=== PATIENT | male | born 1940 | race Caucasian/White ===

== ENCOUNTER 2018-03-05 18:48 | Inpatient (IN) | payer BC, MEDICARE ==
[~2018-03-05] VITALS: Ht 157.5 cm; Wt 76.8 kg
[~2018-03-05 18:48] MED LIST: AMIO200T57 PO; ATOR20TA PO; CARV-49 PO; CHOL10008 PO; EXEN2VIA SUBCUT; FOLI1TAB16 PO; FURO40TA4 PO; LISI2.5T2 PO; MULT-342 PO; NITR0.4T48 SL; OMEG-8 PO; PANT-47 PO; SPIR25TA PO; TEMA15CA5 PO
[2018-03-05] MEDS ORDERED: furosemide 40mg/4ml inj IV ONE (19:05)
[2018-03-05 19:24] LABS: BASOPHILS % (AUTO) 0 % (0-1); EOSINOPHILS % (AUTO) 0.5 % (0-6); HEMATOCRIT 32.7 % (42.0-52.0); HEMOGLOBIN 10.5 g/dl (14.0-17.9); LYMPHOCYTES # (AUTO) 0.3 X10'3 (1.1-4.8); LYMPHOCYTES % (AUTO) 3.4 % (21-51); MEAN CORPUSCULAR HEMOGLOBIN 26.5 PG (27.0-31.0); MEAN CORPUSCULAR HGB CONC 32.2 % (33.0-36.5); MEAN CORPUSCULAR VOLUME 82.1 FL (78-98); MEAN PLATELET VOLUME 9.4 FL (7.4-10.4); MONOCYTES % (AUTO) 0.5 % (2-12); NEUTROPHILS # (AUTO) 7.8 X10'3 (1.8-7.7); NEUTROPHILS % (AUTO) 95.6 % (42-75); PLATELET COUNT 189 X10'3 (140-440); RED BLOOD COUNT 3.98 X10'6 (4.70-6.10); RED CELL DISTRIBUTION WIDTH 15.9 % (11.5-14.5); WHITE BLOOD COUNT 8.1 X10'3 (4.5-11.0)
[2018-03-05 19:33] LABS: PARTIAL THROMBOPLASTIN TIME 22 SECONDS (22-32); PROTHROMBIN TIME 10.7 SECONDS (9.0-12.0)
[2018-03-05 19:39] LABS: ALANINE AMINOTRANSFERASE 33 U/L (12-78); ALBUMIN 3.6 G/DL (3.4-5.0); ALBUMIN/GLOBULIN RATIO 0.9 (1.1-1.5); ALKALINE PHOSPHATASE 105 IU/L (46-116); ANION GAP 12 (8-16); ASPARTATE AMINO TRANSFERASE 25 U/L (10-37); BILIRUBIN,TOTAL 0.8 MG/DL (0.1-1.0); BLOOD UREA NITROGEN 29 MG/DL (7-18); BUN/CREATININE RATIO 14.9 (5.4-32.0); CHLORIDE 97 MMOL/L (99-107); CREATININE 1.94 MG/DL (0.60-1.10); GLUCOSE 271 MG/DL (70-104); POTASSIUM 4.2 MMOL/L (3.5-5.1); SODIUM 136 MMOL/L (135-145); TOTAL CARBON DIOXIDE 26.9 MMOL/L (24-32); TOTAL PROTEIN 7.5 G/DL (6.4-8.2); eGFR 34 ML/MIN
[2018-03-05] MEDS ORDERED: LORazepam 2 mg/ml vial IV ONE (19:40)
[2018-03-05] MEDS ORDERED: AMIO200T57 PO (20:18)
[2018-03-05] MEDS ORDERED: TEMA15CA5 PO (20:34)
[2018-03-05] MEDS ORDERED: FURO40TA4 PO (20:34)
[2018-03-05] MEDS ORDERED: LEVO50TA PO (20:34)
[2018-03-05] MEDS ORDERED: SACU1TAB PO (20:34)
[2018-03-05] MEDS ORDERED: furosemide 10 MG/1 ML 10ml inj IV ONE (20:35)
[2018-03-05 20:58] LABS: CLARITY,URINE Clear (Clear); COLOR,URINE Yellow (Yellow); GLUCOSE, URINE Negative (Neg); KETONES,URINE Negative (Neg); LEUKOCYTE ESTERASE ,URINE Negative (Neg); NITRITES, URINE Negative (Neg); OCCULT BLOOD,URINE Negative (Neg); PROTEIN,URINE Negative (Neg); UROBILINOGEN,URINE 0.2 E.U/dL (0.2-1.0)
[2018-03-05 20:59] LABS: UA COLLECTION TYPE VOIDED
[2018-03-05] MEDS ORDERED: normal saline 1000ml 1,000 ML IV SCH (22:18)
[2018-03-05] MEDS ORDERED: magnesium hydroxide 30ml (MOM) UD suspension PO PRN (22:20)
[2018-03-05] MEDS ORDERED: acetaminophen 325mg tablet PO PRN ×2 (22:20)
[2018-03-05] MEDS ORDERED: nitroGLYCERIN 0.4mg SUBLingual tab SL PRN ×2 (22:25)
[2018-03-06] VITALS (7 sets, daily range): BP systolic 110–133; BP diastolic 48–67
[2018-03-06] MEDS: furosemide 40mg/4ml inj IV SCH ×3 (01:44→15:28)
[2018-03-06 01:47] LABS: ALANINE AMINOTRANSFERASE 35 U/L (12-78); ALBUMIN 3.7 G/DL (3.4-5.0); ALBUMIN/GLOBULIN RATIO 0.9 (1.1-1.5); ALKALINE PHOSPHATASE 101 IU/L (46-116); ANION GAP 14 (8-16); ASPARTATE AMINO TRANSFERASE 27 U/L (10-37); BILIRUBIN,TOTAL 0.8 MG/DL (0.1-1.0); BLOOD UREA NITROGEN 28 MG/DL (7-18); CALCIUM 9.2 MG/DL (8.5-10.1); CHLORIDE 99 MMOL/L (99-107); CREATININE 1.75 MG/DL (0.60-1.10); GLUCOSE 147 MG/DL (70-104); SODIUM 140 MMOL/L (135-145); TOTAL CARBON DIOXIDE 27.2 MMOL/L (24-32); TOTAL PROTEIN 7.7 G/DL (6.4-8.2); eGFR 38 ML/MIN
[2018-03-06 01:50] LABS: MAGNESIUM 1.9 MG/DL (1.5-2.4); PHOSPHORUS 3.9 MG/DL (2.3-4.5)
[2018-03-06] MEDS ORDERED: heparin 10,000 units/1 ML INJ IV ONE (02:15)
[2018-03-06] MEDS ORDERED: heparin 10,000 units/1 ML INJ IV PRN (02:15)
[2018-03-06 02:40] LABS: BASOPHILS % (AUTO) 0.2 % (0-1); EOSINOPHILS % (AUTO) 0 % (0-6); HEMATOCRIT 33.3 % (42.0-52.0); LYMPHOCYTES # (AUTO) 0.3 X10'3 (1.1-4.8); MEAN CORPUSCULAR HEMOGLOBIN 27.1 PG (27.0-31.0); MEAN CORPUSCULAR VOLUME 82.1 FL (78-98); MEAN PLATELET VOLUME 10.7 FL (7.4-10.4); MONOCYTES % (AUTO) 0.6 % (2-12); NEUTROPHILS # (AUTO) 6.1 X10'3 (1.8-7.7); NEUTROPHILS % (AUTO) 95.2 % (42-75); PLATELET COUNT 183 X10'3 (140-440); RED BLOOD COUNT 4.05 X10'6 (4.70-6.10); RED CELL DISTRIBUTION WIDTH 14.9 % (11.5-14.5); WHITE BLOOD COUNT 6.4 X10'3 (4.5-11.0)
[2018-03-06] MEDS: levoTHYROXINE 25mcg tablet PO SCH (07:03)
[2018-03-06] MEDS ORDERED: heparin, porcine 5000 units/ml vial SQ SCH (08:00)
[2018-03-06] MEDS: folic acid 1mg tablet PO SCH (08:02)
[2018-03-06] MEDS: amiodarone 200mg tablet PO SCH (08:02)
[2018-03-06] MEDS: carvedilol 6.25mg tablet PO SCH ×2 (08:02→20:09)
[2018-03-06] MEDS: vitamin D (cholecalciferol) 1,000 unit tablet PO SCH (08:03)
[2018-03-06] MEDS: sacubitril/valsartan 24mg-26mg tablet PO SCH ×2 (08:05→20:09)
[2018-03-06] MEDS: atorvastatin 20mg tablet PO SCH (08:13)
[2018-03-06] MEDS: aspirin 81mg tab.chew PO SCH (09:19)
[2018-03-06] MEDS ORDERED: EXEN2VIA SUBCUT (12:02)
[2018-03-06] MEDS ORDERED: FURO80TA3 PO (12:03)
[2018-03-06] MEDS ORDERED: TEMA7.5C PO (12:05)
[2018-03-06] MEDS: heparin, porcine 5000 units/ml vial SQ SCH (20:10)
[2018-03-07] MEDS ORDERED: temazepam 15mg capsule PO ONE (00:10)
[2018-03-07] MEDS: furosemide 40mg/4ml inj IV SCH ×2 (00:22→07:53)
[2018-03-07 03:00] VITALS: BP 108/61
[2018-03-07 05:44] LABS: BASOPHILS % (AUTO) 0.2 % (0-1); EOSINOPHILS # (AUTO) 0.3 X10'3 (0-0.9); EOSINOPHILS % (AUTO) 2.3 % (0-6); HEMOGLOBIN 9.1 g/dl (14.0-17.9); LYMPHOCYTES # (AUTO) 0.8 X10'3 (1.1-4.8); MEAN CORPUSCULAR HEMOGLOBIN 26.7 PG (27.0-31.0); MEAN CORPUSCULAR HGB CONC 32.4 % (33.0-36.5); MEAN CORPUSCULAR VOLUME 82.2 FL (78-98); MEAN PLATELET VOLUME 10.7 FL (7.4-10.4); MONOCYTES # (AUTO) 0.6 X10'3 (0-0.9); MONOCYTES % (AUTO) 4.9 % (2-12); NEUTROPHILS # (AUTO) 10.3 X10'3 (1.8-7.7); NEUTROPHILS % (AUTO) 85.6 % (42-75); PLATELET COUNT 164 X10'3 (140-440); RED BLOOD COUNT 3.41 X10'6 (4.70-6.10); RED CELL DISTRIBUTION WIDTH 15.7 % (11.5-14.5)
[2018-03-07 06:00] VITALS: BP 107/58
[2018-03-07 06:17] LABS: ALANINE AMINOTRANSFERASE 30 U/L (12-78); ALBUMIN 3.2 G/DL (3.4-5.0); ALBUMIN/GLOBULIN RATIO 0.9 (1.1-1.5); ALKALINE PHOSPHATASE 80 IU/L (46-116); ANION GAP 9 (8-16); ASPARTATE AMINO TRANSFERASE 23 U/L (10-37); BILIRUBIN,TOTAL 0.5 MG/DL (0.1-1.0); BLOOD UREA NITROGEN 40 MG/DL (7-18); BUN/CREATININE RATIO 20.5 (5.4-32.0); CALCIUM 8.3 MG/DL (8.5-10.1); CHLORIDE 100 MMOL/L (99-107); CREATININE 1.95 MG/DL (0.60-1.10); GLUCOSE 102 MG/DL (70-104); MAGNESIUM 1.9 MG/DL (1.5-2.4); PHOSPHORUS 3.6 MG/DL (2.3-4.5); POTASSIUM 3.4 MMOL/L (3.5-5.1); SODIUM 141 MMOL/L (135-145); TOTAL CARBON DIOXIDE 32.1 MMOL/L (24-32); TOTAL PROTEIN 6.7 G/DL (6.4-8.2); eGFR 34 ML/MIN
[2018-03-07 07:37] LABS: LARGE PLATELETS FEW; PLATELET ESTIMATE NORMAL
[2018-03-07] MEDS: vitamin D (cholecalciferol) 1,000 unit tablet PO SCH (07:48)
[2018-03-07] MEDS: aspirin 81mg tab.chew PO SCH (07:49)
[2018-03-07] MEDS: sacubitril/valsartan 24mg-26mg tablet PO SCH (07:49)
[2018-03-07] MEDS: carvedilol 6.25mg tablet PO SCH (07:49)
[2018-03-07] MEDS: folic acid 1mg tablet PO SCH (07:49)
[2018-03-07] MEDS: amiodarone 200mg tablet PO SCH (07:50)
[2018-03-07] MEDS: levoTHYROXINE 25mcg tablet PO SCH (07:50)
[2018-03-07] MEDS: atorvastatin 20mg tablet PO SCH (07:51)
[2018-03-07] MEDS: heparin, porcine 5000 units/ml vial SQ SCH (07:54)
[2018-03-07] MEDS ORDERED: ALPRAZolam 0.25mg tablet PO ONE (10:15)
[2018-03-07 11:00] VITALS: BP 108/52
[2018-03-07] MEDS ORDERED: FURO80TA3 PO (12:26)
== END 2018-03-07 13:25 | disposition home or self-care (01) | DRG 280 ==
LOC: ER 18:48 → ED HOLD 22:18 → EDBEDREQ 23:24 → PCU 3S 03-06 00:35
PROVIDERS: ADMIT Emergency Medicine; ATTEND Internal Medicine
PROC: 5A09357 Assistance with Respiratory Ventilation, Less than 24 Consecutive Hours, Continuous Positive Airway Pressure (ICD-10-PCS; principal; 2018-03-05)
PROC: 5A09357 Assistance with Respiratory Ventilation, Less than 24 Consecutive Hours, Continuous Positive Airway Pressure (ICD-10-PCS; 2018-03-06)
DX: I21.4 Non-ST elevation (NSTEMI) myocardial infarction (principal); I50.23 Acute on chronic systolic (congestive) heart failure; I13.0 Hypertensive heart and chronic kidney disease with heart failure and stage 1 through stage 4 chronic kidney disease, or unspecified chronic kidney disease; I48.92 Unspecified atrial flutter; N17.9 Acute kidney failure, unspecified; E11.22 Type 2 diabetes mellitus with diabetic chronic kidney disease; E78.00 Pure hypercholesterolemia, unspecified; E78.5 Hyperlipidemia, unspecified; G47.30 Sleep apnea, unspecified; I25.10 Atherosclerotic heart disease of native coronary artery without angina pectoris; I27.20 Pulmonary hypertension, unspecified; M19.90 Unspecified osteoarthritis, unspecified site; N18.9 Chronic kidney disease, unspecified; I08.1 Rheumatic disorders of both mitral and tricuspid valves; Z85.47 Personal history of malignant neoplasm of testis; Z87.891 Personal history of nicotine dependence; Z95.1 Presence of aortocoronary bypass graft; Z95.810 Presence of automatic (implantable) cardiac defibrillator; Z79.899 Other long term (current) drug therapy; Z79.01 Long term (current) use of anticoagulants; Z79.82 Long term (current) use of aspirin
CPT/HCPCS: 36415; 71045; 80053; 81003; 83605; 83735; 83880; 84100; 84439; 84443; 84484; 85025; 85610; 85730; 87040; 87070; 93005; 93306; 94660; 94760; 96374; 96375; 96376; 99285; J1644; J1940; J2060; J7030

== ENCOUNTER 2018-07-11 06:39 | Emergency (ER) | payer BC, MEDICARE ==
[~2018-07-11] VITALS: Ht 160 cm; Wt 77.3 kg
[~2018-07-11 06:39] MED LIST changes: +AMIO200T40 PO; -AMIO200T57 PO; -FURO40TA4 PO; +FURO80TA3 PO; +LEVO50TA PO; -LISI2.5T2 PO; -MULT-342 PO; -OMEG-8 PO; -PANT-47 PO; +SACU1TAB PO; -SPIR25TA PO; -TEMA15CA5 PO; +TEMA7.5C PO
[2018-07-11 07:39] LABS: BASOPHILS % (AUTO) 0.6 % (0-1); EOSINOPHILS # (AUTO) 0.3 X10'3 (0-0.9); EOSINOPHILS % (AUTO) 5.3 % (0-6); HEMATOCRIT 36.5 % (42.0-52.0); HEMOGLOBIN 11.5 g/dl (14.0-17.9); LYMPHOCYTES # (AUTO) 0.8 X10'3 (1.1-4.8); LYMPHOCYTES % (AUTO) 15.6 % (21-51); MEAN CORPUSCULAR HEMOGLOBIN 26.8 PG (27.0-31.0); MEAN CORPUSCULAR HGB CONC 31.6 % (33.0-36.5); MEAN CORPUSCULAR VOLUME 84.7 FL (78-98); MEAN PLATELET VOLUME 9.3 FL (7.4-10.4); MONOCYTES # (AUTO) 0.4 X10'3 (0-0.9); MONOCYTES % (AUTO) 8.5 % (2-12); NEUTROPHILS # (AUTO) 3.6 X10'3 (1.8-7.7); PLATELET COUNT 180 X10'3 (140-440); RED BLOOD COUNT 4.31 X10'6 (4.70-6.10); RED CELL DISTRIBUTION WIDTH 20.9 % (11.5-14.5); WHITE BLOOD COUNT 5.2 X10'3 (4.5-11.0)
[2018-07-11 07:58] LABS: ALANINE AMINOTRANSFERASE 35 U/L (12-78); ALBUMIN 3.6 G/DL (3.4-5.0); ALKALINE PHOSPHATASE 87 IU/L (46-116); ANION GAP 8 (8-16); ASPARTATE AMINO TRANSFERASE 30 U/L (10-37); BILIRUBIN,TOTAL 0.4 MG/DL (0.1-1.0); BLOOD UREA NITROGEN 26 MG/DL (7-18); BUN/CREATININE RATIO 13.5 (5.4-32.0); CALCIUM 9.2 MG/DL (8.5-10.1); CHLORIDE 99 MMOL/L (99-107); CREATININE 1.93 MG/DL (0.60-1.10); GLUCOSE 109 MG/DL (70-104); POTASSIUM 3.8 MMOL/L (3.5-5.1); SODIUM 140 MMOL/L (135-145); TOTAL CARBON DIOXIDE 33.2 MMOL/L (24-32); TOTAL PROTEIN 7.3 G/DL (6.4-8.2); eGFR 34 ML/MIN
[2018-07-11 09:22] LABS: CLARITY,URINE CLEAR (Clear); COLOR,URINE YELLOW (Yellow); GLUCOSE, URINE NEGATIVE (Neg); KETONES,URINE NEGATIVE (Neg); LEUKOCYTE ESTERASE ,URINE NEGATIVE (Neg); NITRITES, URINE NEGATIVE (Neg); OCCULT BLOOD,URINE NEGATIVE (Neg); PROTEIN,URINE NEGATIVE (Neg); UROBILINOGEN,URINE 0.2 E.U/dL (0.2-1.0)
[2018-07-11 09:23] LABS: UA COLLECTION TYPE URINAL
[2018-07-11] MEDS ORDERED: TRAM50TA2 PO (09:29)
[2018-07-11 09:36] VITALS: BP 103/62
== END 2018-07-11 09:39 | disposition home or self-care (01) ==
LOC: ER 06:39
DX: M54.5 Low back pain (principal); I25.10 Atherosclerotic heart disease of native coronary artery without angina pectoris; E78.00 Pure hypercholesterolemia, unspecified; J44.9 Chronic obstructive pulmonary disease, unspecified; E11.9 Type 2 diabetes mellitus without complications; M19.90 Unspecified osteoarthritis, unspecified site; I11.0 Hypertensive heart disease with heart failure; I50.9 Heart failure, unspecified; Z95.1 Presence of aortocoronary bypass graft; Z79.899 Other long term (current) drug therapy
CPT/HCPCS: 36415; 74176; 80053; 81003; 85025; 99285

== ENCOUNTER 2018-10-21 08:54 | Inpatient (IN) | payer BC, MEDICARE ==
[~2018-10-21] VITALS: Ht 157.5 cm; Wt 70.4 kg
[2018-10-21] VITALS (8 sets, daily range): BP systolic 97–127; BP diastolic 42–76
[2018-10-21 10:16] LABS: BASOPHILS % (AUTO) 0.4 % (0-1); EOSINOPHILS # (AUTO) 0.3 X10'3 (0-0.9); EOSINOPHILS % (AUTO) 5.6 % (0-6); HEMOGLOBIN 11.3 g/dl (14.0-17.9); LYMPHOCYTES # (AUTO) 0.5 X10'3 (1.1-4.8); MEAN CORPUSCULAR HEMOGLOBIN 28.5 PG (27.0-31.0); MEAN CORPUSCULAR HGB CONC 33.3 g/dL (33.0-36.5); MEAN CORPUSCULAR VOLUME 85.8 FL (78-98); MEAN PLATELET VOLUME 8.7 FL (7.4-10.4); MONOCYTES # (AUTO) 0.4 X10'3 (0-0.9); MONOCYTES % (AUTO) 6.3 % (2-12); NEUTROPHILS # (AUTO) 4.7 X10'3 (1.8-7.7); NEUTROPHILS % (AUTO) 78.7 % (42-75); PLATELET COUNT 212 X10'3 (140-440); RED BLOOD COUNT 3.96 X10'6 (4.70-6.10); RED CELL DISTRIBUTION WIDTH 15.9 % (11.5-14.5); WHITE BLOOD COUNT 5.9 X10'3 (4.5-11.0)
[2018-10-21 10:22] LABS: CLARITY,URINE CLEAR (Clear); COLOR,URINE STRAW (Yellow); GLUCOSE, URINE NEGATIVE (Neg); KETONES,URINE NEGATIVE (Neg); LEUKOCYTE ESTERASE ,URINE NEGATIVE (Neg); NITRITES, URINE NEGATIVE (Neg); OCCULT BLOOD,URINE NEGATIVE (Neg); PROTEIN,URINE NEGATIVE (Neg); UROBILINOGEN,URINE 0.2 E.U/dL (0.2-1.0)
[2018-10-21 10:28] LABS: ALANINE AMINOTRANSFERASE 34 U/L (12-78); ALBUMIN 3.5 G/DL (3.4-5.0); ALBUMIN/GLOBULIN RATIO 0.9 (1.1-1.5); ALKALINE PHOSPHATASE 99 IU/L (46-116); ANION GAP 9 (8-16); ASPARTATE AMINO TRANSFERASE 31 U/L (10-37); BILIRUBIN,TOTAL 0.5 MG/DL (0.1-1.0); BLOOD UREA NITROGEN 37 MG/DL (7-18); BUN/CREATININE RATIO 24.3 (5.4-32.0); CALCIUM 8.7 MG/DL (8.5-10.1); CHLORIDE 98 MMOL/L (99-107); CREATININE 1.52 MG/DL (0.60-1.10); GLUCOSE 172 MG/DL (70-104); LIPASE 760 U/L (73-393); POTASSIUM 3.5 MMOL/L (3.5-5.1); PROTHROMBIN TIME 10.1 SECONDS (9.0-12.0); SODIUM 137 MMOL/L (135-145); TOTAL PROTEIN 7.3 G/DL (6.4-8.2); eGFR 45 ML/MIN
[2018-10-21 10:29] LABS: UA COLLECTION TYPE CLN CATCH MIDSTREAM
[2018-10-21] MEDS ORDERED: FURO-150 PO (12:03)
[2018-10-21] MEDS ORDERED: CLOP75TA15 PO (12:06)
[2018-10-21] MEDS ORDERED: ASPI-611 PO (12:06)
[2018-10-21] MEDS ORDERED: famotidine/PF 10 mg/ml inj IV ONE (12:40)
[2018-10-21] MEDS ORDERED: pantoprazole 40 MG vial IV ONE (12:40)
[2018-10-21] MEDS: pantoprazole 40MG/NS 100ML BAG 100 ML IV SCH ×4 (13:16→20:35)
[2018-10-21 13:21] LABS: OCCULT BLOOD STOOL POSITIVE (Neg)
[2018-10-21] MEDS ORDERED: magnesium 4gm in 100ml NS 100 ML IV PRN (15:20)
[2018-10-21] MEDS ORDERED: potassium Cl 20 mEq SR tablet PO PRN ×2 (15:20)
[2018-10-21] MEDS ORDERED: magnesium Cl slow-release 64mg tablet PO PRN (15:20)
[2018-10-21] MEDS ORDERED: potassium Cl 40MEQ/NS 500ml 500 ML IV PRN ×2 (15:20)
[2018-10-21] MEDS ORDERED: magnesium 2GM in 50ml NS 50 ML IV PRN (15:20)
--- NOTE | 2018-10-21 16:10 | NUR ---
spoke W/ Justine from GI stated that she would be by for a ERCP at approx 1715
[2018-10-21] MEDS ORDERED: fentaNYL/PF 50MCG/1 ML 2ML syringe ONE (16:24)
[2018-10-21] MEDS ORDERED: MIDAZolam 5mg/5ml vial ONE (16:25)
[2018-10-21] MEDS ORDERED: LIDOcaine Viscous 15ml cup ONE (16:25)
--- NOTE | 2018-10-21 18:10 | NUR ---
Patient in room PCU 3026. I have received report from ALIX Winters and had the opportunity to ask questions and will assume patient care when pt arrives to unit.
--- NOTE | 2018-10-21 18:30 | NUR ---
Patient arrived to unit via wheelchair. VSS and pt is alert and oriented.
[2018-10-21] MEDS: carvedilol 6.25mg tablet PO SCH (19:35)
[2018-10-21] MEDS: normal saline 1000ml 1,000 ML IV SCH (19:37)
[2018-10-21] MEDS: sacubitril/valsartan 24mg-26mg tablet PO SCH (20:00)
[2018-10-22] MEDS: pantoprazole 40MG/NS 100ML BAG 100 ML IV SCH ×3 (01:03→10:28)
[2018-10-22] MEDS: normal saline 1000ml 1,000 ML IV SCH ×2 (01:20→04:43)
[2018-10-22 02:00] VITALS: BP 125/50
[2018-10-22] MEDS ORDERED: acetaminophen 325mg tablet PO PRN (03:05)
[2018-10-22 05:16] LABS: BASOPHILS % (AUTO) 0.7 % (0-1); EOSINOPHILS # (AUTO) 0.3 X10'3 (0-0.9); EOSINOPHILS % (AUTO) 5.7 % (0-6); HEMATOCRIT 30.1 % (42.0-52.0); LYMPHOCYTES # (AUTO) 0.6 X10'3 (1.1-4.8); LYMPHOCYTES % (AUTO) 10.9 % (21-51); MEAN CORPUSCULAR HEMOGLOBIN 28.5 PG (27.0-31.0); MEAN CORPUSCULAR HGB CONC 33.2 g/dL (33.0-36.5); MEAN PLATELET VOLUME 8.5 FL (7.4-10.4); MONOCYTES # (AUTO) 0.6 X10'3 (0-0.9); MONOCYTES % (AUTO) 10.3 % (2-12); NEUTROPHILS # (AUTO) 4.2 X10'3 (1.8-7.7); NEUTROPHILS % (AUTO) 72.4 % (42-75); PLATELET COUNT 192 X10'3 (140-440); RED CELL DISTRIBUTION WIDTH 16.5 % (11.5-14.5); WHITE BLOOD COUNT 5.8 X10'3 (4.5-11.0)
[2018-10-22 05:26] LABS: ANION GAP 11 (8-16); BLOOD UREA NITROGEN 30 MG/DL (7-18); BUN/CREATININE RATIO 22.2 (5.4-32.0); CALCIUM 8.3 MG/DL (8.5-10.1); CHLORIDE 103 MMOL/L (99-107); CREATININE 1.35 MG/DL (0.60-1.10); GLUCOSE 78 MG/DL (70-104); POTASSIUM 3.1 MMOL/L (3.5-5.1); SODIUM 142 MMOL/L (135-145); eGFR 51 ML/MIN
[2018-10-22 05:57] LABS: HEMOGLOBIN A1C 6.7 % (4.5-6.2)
[2018-10-22 06:00] VITALS: BP 116/60
--- NOTE | 2018-10-22 06:20 | NUR ---
Problems reprioritized. Patient report given, questions answered & plan of care reviewed with ALIX Villarreal.
[2018-10-22] MEDS ORDERED: levoTHYROXINE 25mcg tablet PO SCH (07:00)
[2018-10-22] MEDS ORDERED: K and/or MAG REPLACEMENT MC SCH (08:00)
[2018-10-22] MEDS ORDERED: amiodarone 200mg tablet PO SCH (08:00)
[2018-10-22] MEDS ORDERED: folic acid 1mg tablet PO SCH (08:00)
[2018-10-22] MEDS ORDERED: furosemide 20MG tablet PO SCH (08:00)
[2018-10-22] MEDS ORDERED: atorvastatin 20mg tablet PO SCH (08:00)
[2018-10-22] MEDS: carvedilol 6.25mg tablet PO SCH (08:05)
[2018-10-22] MEDS: sacubitril/valsartan 24mg-26mg tablet PO SCH (08:05)
[2018-10-22 11:00] VITALS: BP 117/51
[2018-10-22] MEDS ORDERED: PANT-47 PO (11:59)
--- NOTE | 2018-10-22 13:29 | NUR ---
PT HAS ALL BELONGINGS AND IV REMOVED TIP IN TACT NO S/S OF COMPLICATIONS. PTS MEDS BROUGHT BEDSIDE DELIVERY FROM [facility]. PT HAS NO FURTHER QUESTIONS CHRIS IS AT BEDSIDE DRIVING PT HOME. PT WHEELED OUT IN A WHEELCHAIR AND WILL FOLLOW UP WITH JONNATHAN PACHECO
== END 2018-10-22 13:30 | disposition home or self-care (01) | DRG 378 ==
LOC: ER 08:54 → ED HOLD 15:20 → PCU 3S 18:20
PROVIDERS: ADMIT Internal Medicine; ATTEND Internal Medicine
PROC: 0DJ08ZZ Inspection of Upper Intestinal Tract, Via Natural or Artificial Opening Endoscopic (ICD-10-PCS; principal; 2018-10-21)
DX: K29.61 Other gastritis with bleeding (principal); I50.22 Chronic systolic (congestive) heart failure; I48.92 Unspecified atrial flutter; C43.9 Malignant melanoma of skin, unspecified; D50.0 Iron deficiency anemia secondary to blood loss (chronic); E03.9 Hypothyroidism, unspecified; E11.9 Type 2 diabetes mellitus without complications; E78.00 Pure hypercholesterolemia, unspecified; E78.5 Hyperlipidemia, unspecified; K44.9 Diaphragmatic hernia without obstruction or gangrene; I11.0 Hypertensive heart disease with heart failure; I25.10 Atherosclerotic heart disease of native coronary artery without angina pectoris; I48.2 Chronic atrial fibrillation; K31.9 Disease of stomach and duodenum, unspecified; N28.9 Disorder of kidney and ureter, unspecified; M19.90 Unspecified osteoarthritis, unspecified site; Z79.890 Hormone replacement therapy; Z79.899 Other long term (current) drug therapy; Z95.1 Presence of aortocoronary bypass graft; Z79.82 Long term (current) use of aspirin; Z87.891 Personal history of nicotine dependence; Z95.5 Presence of coronary angioplasty implant and graft; Z79.01 Long term (current) use of anticoagulants
CPT/HCPCS: 36415; 80048; 80053; 81003; 82272; 82948; 83036; 83690; 83735; 85025; 85610; 86885; 86900; 86901; 87070; 96365; 96375; 99152; 99285; A4620; C9113; G0378; J2250; J3010; J3490; J7030

== ENCOUNTER → 2021-05-25 | Outpatient (CLI) | payer MEDICARE ==
[~2021-05-25] MED LIST changes: -AMIO200T40 PO; +AMIO200T61 PO; +ASPI-611 PO; +FURO-150 PO; -FURO80TA3 PO; +PANT-47 PO; -TEMA7.5C PO
[2021-05-25 16:53] LABS: UA COLLECTION TYPE CLN CATCH MIDSTREAM
[2021-05-25 16:54] LABS: CLARITY,URINE CLEAR (Clear); COLOR,URINE STRAW (Yellow); GLUCOSE, URINE >=1000 mg/dl (Neg); KETONES,URINE NEGATIVE (Neg); OCCULT BLOOD,URINE NEGATIVE (Neg); PROTEIN,URINE NEGATIVE (Neg)
[2021-05-25 16:55] LABS: LEUKOCYTE ESTERASE ,URINE NEGATIVE (Neg); NITRITES, URINE NEGATIVE (Neg); UROBILINOGEN,URINE 0.2 E.U/dL (0.2-1.0)
[2021-05-25 16:56] LABS: BACTERIA,URINE NONE SEEN /HPF (Neg); HYALINE CASTS 0-3 /LPF (NEGATIVE); MUCUS STRANDS NONE SEEN /LPF (Neg); RBC,URINE NONE SEEN /HPF (0-2); SQUAMOUS EPITHELIAL CELL,UR NONE SEEN /LPF (FEW); WBC,URINE 0-4 /HPF (0-4)
== END | disposition home or self-care (01) ==
LOC: LAB 15:55
PROVIDERS: ATTEND Internal Medicine Interventional Cardiology
DX: Z01.818 Encounter for other preprocedural examination (principal); I25.810 Atherosclerosis of coronary artery bypass graft(s) without angina pectoris; I34.0 Nonrheumatic mitral (valve) insufficiency; I11.0 Hypertensive heart disease with heart failure; I50.22 Chronic systolic (congestive) heart failure; E11.9 Type 2 diabetes mellitus without complications; I25.10 Atherosclerotic heart disease of native coronary artery without angina pectoris; I48.3 Typical atrial flutter; G47.33 Obstructive sleep apnea (adult) (pediatric); E78.49 Other hyperlipidemia; Z95.810 Presence of automatic (implantable) cardiac defibrillator
CPT/HCPCS: 81001

== ENCOUNTER 2022-04-19 14:40 | Inpatient (IN) | payer MEDICARE, OTHER ==
[~2022-04-19] VITALS: Ht 160 cm; Wt 84.0 kg
[~2022-04-19 14:40] MED LIST changes: -FOLI1TAB16 PO; +FOLI1TAB27 PO
[2022-04-19 15:55] LABS: D-DIMER 2.39 MG/L FEU (0-0.50)
[2022-04-19 15:56] LABS: MEAN CORPUSCULAR HEMOGLOBIN 30.2 PG (27.0-31.0); MONOCYTES # (AUTO) 0.5 X10'3 (0-0.9); NEUTROPHILS # (AUTO) 3.9 X10'3 (1.8-7.7); WHITE BLOOD COUNT 4.9 X10'3 (4.5-11.0)
[2022-04-19 15:59] LABS: BASOPHILS % (AUTO) 0.8 % (0-1); EOSINOPHILS % (AUTO) 0.4 % (0-6); HEMATOCRIT 39.2 % (42.0-52.0); LYMPHOCYTES # (AUTO) 0.5 X10'3 (1.1-4.8); LYMPHOCYTES % (AUTO) 9.6 % (21-51); MEAN CORPUSCULAR HGB CONC 33.2 g/dL (33.0-36.5); MEAN CORPUSCULAR VOLUME 91.1 FL (78-98); MONOCYTES % (AUTO) 10.3 % (2-12); NEUTROPHILS % (AUTO) 78.9 % (42-75); PLATELET COUNT 153 X10'3 (140-440); RED BLOOD COUNT 4.31 X10'6 (4.70-6.10); RED CELL DISTRIBUTION WIDTH 15.7 % (11.5-14.5)
[2022-04-19 16:03] LABS: ALANINE AMINOTRANSFERASE 286 U/L (12-78); ALBUMIN 3.4 G/DL (3.4-5.0); ALKALINE PHOSPHATASE 87 IU/L (46-116); ANION GAP 12 (8-16); ASPARTATE AMINO TRANSFERASE 210 U/L (10-37); BILIRUBIN,TOTAL 0.3 MG/DL (0.1-1.0); BLOOD UREA NITROGEN 43 MG/DL (7-18); BUN/CREATININE RATIO 18.1 (5.4-32.0); CALCIUM 8.3 MG/DL (8.5-10.1); CHLORIDE 101 MMOL/L (99-107); CREATININE 2.37 MG/DL (0.60-1.10); GLUCOSE 189 MG/DL (70-104); POTASSIUM 3.8 MMOL/L (3.5-5.1); SODIUM 137 MMOL/L (135-145); TOTAL CARBON DIOXIDE 24.5 MMOL/L (24-32); TOTAL PROTEIN 6.8 G/DL (6.4-8.2); eGFR 26 ML/MIN
--- NOTE | 2022-04-19 16:27 | NUR ---
Pt satting 88% RA, placed on 3L NC, now 93-94%. RR 18
[2022-04-19] MEDS ORDERED: dexamethasone sod phosphate 10mg/ml inj IV STA (16:33)
[2022-04-19] MEDS ORDERED: diltiazem 5mg/ml 5ml inj. IV ONE ×2 (16:39→16:40)
[2022-04-19] MEDS ORDERED: normal saline 1000ML IV soln IVB ONE (16:40)
--- NOTE | 2022-04-19 17:13 | NUR ---
Possible HR change @ appx 1630. HR appeared to be capturing well at a paced rate of 60. PT asymptomatic. Pt seen by provider at bedside, leads readjusted.
[2022-04-19] MEDS ORDERED: BENZ-49 PO (17:22)
[2022-04-19] MEDS ORDERED: SACU1TAB4 PO (17:22)
[2022-04-19] MEDS ORDERED: SPIR25TA5 PO (17:22)
[2022-04-19] MEDS ORDERED: EMPA10TA PO (17:22)
[2022-04-19] MEDS ORDERED: ALLO100T PO (17:22)
[2022-04-19] MEDS ORDERED: FURO40TA4 PO (17:22)
[2022-04-19] MEDS ORDERED: ATOR40TA71 PO (17:22)
[2022-04-19] MEDS ORDERED: SEMA1PEN3 SQ (17:25)
[2022-04-19] MEDS ORDERED: dextrose 50%-water 50ml dispensing syringe IV PRN ×2 (17:35)
[2022-04-19] MEDS ORDERED: POTASSIUM BICARB 20meq eff tab 20 MEQ TABLET.EFF PO PRN ×2 (17:35)
[2022-04-19] MEDS ORDERED: ondansetron/PF 4mg/2ml inj IV PRN (17:35)
[2022-04-19] MEDS ORDERED: potassium CL 10mEq/100ml bag 100 ML IV PRN (17:35)
[2022-04-19] MEDS ORDERED: glucagon, human recombinant 1mg kit SUBCUT PRN (17:35)
[2022-04-19] MEDS ORDERED: ALBUTEROL INHALER 1 PUFF/90 MCG INHALation IH PRN (17:35)
[2022-04-19] MEDS ORDERED: mag hydrox/Alum hydrox/simeth 30ml oral suspension PO PRN (17:35)
[2022-04-19] MEDS ORDERED: MESSAGE TO PHARMACY PO ONE (17:35)
[2022-04-19] MEDS ORDERED: DEXTROSE 15 GM of carb/4 tabs (each vial/BOTTLE has 4 tablets) PO PRN ×2 (17:35)
[2022-04-19] MEDS ORDERED: magnesium 4gm in 100ml NS 100 ML IV PRN (17:35)
[2022-04-19] MEDS ORDERED: acetaminophen 325mg tablet PO PRN (17:35)
[2022-04-19] MEDS ORDERED: magnesium 2GM in 50ml NS 50 ML IV PRN (17:35)
[2022-04-19] MEDS: REMDESIVIR INJ 200 MG in normal saline 100ml IV soln 100 ML IV ONE ×2 (18:05→18:32)
--- NOTE | 2022-04-19 18:24 | NUR ---
assisting RN with pt care, cardizem IV was not given due to low blood pressure, remdesivir also held at this time. Pt is resting quietly on gurney, talking full sentences, no resp distress, skin p/w/d,
--- NOTE | 2022-04-19 18:33 | NUR ---
ASSUMED CARE OF PT. PT AWAKE AND ALERT. PLAN OF CARE DISCUSSED WITH PT. VERBELIZED UNDESTANDING. DENIES PAIN OR DISCOMFORT. WILL MONITOR.
[2022-04-19 19:11] LABS: HEMOGLOBIN A1C 7.2 % (4.5-6.2)
[2022-04-19] MEDS ORDERED: ALLO100T49 PO (19:12)
[2022-04-19] MEDS ORDERED: CARV12.545 PO (19:17)
[2022-04-19] MEDS ORDERED: TRAM50TA2 PO (19:17)
[2022-04-19] MEDS ORDERED: LEVO75TA7 PO (19:19)
[2022-04-19] MEDS ORDERED: DOBUTamine-DoBUTrex 500mg/D5W 250 ML IV SCH (19:50)
[2022-04-19] MEDS ORDERED: dexamethasone inj 6 MG in normal saline 50ml IV soln 50 ML IV SCH (20:00)
--- NOTE | 2022-04-19 20:00 | NUR ---
PT HYPOTENSIVE 100/43 MAP AT 58 . MD DENTON. TO REVIEW CHART AND PLACE ORDERS.
[2022-04-19 20:18] LABS: CREATINE KINASE 95 U/L (39-308); LIPASE 306 U/L (73-393)
[2022-04-19] MEDS: K and/or MAG REPLACEMENT MC SCH (20:18)
--- NOTE | 2022-04-19 20:30 | NUR ---
NEW ORDER TO START DUBUTYMINE NON TRITABLE AT 5MCG/KG/MIN. MED STARTED WILL MONITOR,
[2022-04-19] MEDS: insulin glargine (Lantus) pen - multi-dose SQ SCH (21:00)
[2022-04-19 21:10] VITALS: BP 135/53
[2022-04-19 21:16] LABS: CLARITY,URINE CLEAR (Clear); COLOR,URINE YELLOW (Yellow); GLUCOSE, URINE >=1000 mg/dl (Neg); KETONES,URINE NEGATIVE (Neg); LEUKOCYTE ESTERASE ,URINE NEGATIVE (Neg); NITRITES, URINE NEGATIVE (Neg); OCCULT BLOOD,URINE NEGATIVE (Neg); PH,URINE 5.5 (4.8-8.0); PROTEIN,URINE NEGATIVE (Neg); UA COLLECTION TYPE CLN CATCH MIDSTREAM; UROBILINOGEN,URINE 0.2 E.U/dL (0.2-1.0)
[2022-04-19] MEDS ORDERED: dexamethasone sod phosphate 4mg/ml inj. IV SCH (21:18)
[2022-04-19 21:49] LABS: BACTERIA,URINE NONE SEEN /HPF (Neg); MUCUS STRANDS NONE SEEN /LPF (Neg); RBC,URINE NONE SEEN /HPF (0-2); SQUAMOUS EPITHELIAL CELL,UR FEW /LPF (FEW); WBC,URINE 0-4 /HPF (0-4)
[2022-04-19 21:50] LABS: HYALINE CASTS 0-3 /LPF (NEGATIVE)
[2022-04-19 22:00] VITALS: BP 101/49
[2022-04-19] MEDS: docusate sod 100mg capsule PO SCH (23:22)
[2022-04-19] MEDS: enoxaparin 40mg/0.4ml syringe SQ SCH (23:23)
[2022-04-19] MEDS: CefTRIAXone/D5W-Rocephin 1gm 50 ML IV SCH (23:23)
[2022-04-20] MEDS ORDERED: guaiFENesin/codeine phos 10ml UD oral syrup PO PRN (02:20)
[2022-04-20] MEDS ORDERED: temazepam 15mg capsule PO PRN (02:20)
[2022-04-20 02:39] VITALS: BP 145/60
[2022-04-20 06:00] VITALS: BP 118/66
[2022-04-20] MEDS ORDERED: REMDESIVIR INJ 100 MG in normal saline 100ml IV soln 100 ML IV SCH (08:00)
[2022-04-20] MEDS: docusate sod 100mg capsule PO SCH ×2 (08:00→20:00)
[2022-04-20] MEDS: K and/or MAG REPLACEMENT MC SCH ×2 (08:00→20:00)
[2022-04-20 08:26] LABS: BASOPHILS % (AUTO) 0.2 % (0-1); EOSINOPHILS % (AUTO) 0 % (0-6); HEMATOCRIT 40.6 % (42.0-52.0); HEMOGLOBIN 13.5 g/dl (14.0-17.9); LYMPHOCYTES # (AUTO) 0.4 X10'3 (1.1-4.8); LYMPHOCYTES % (AUTO) 6.6 % (21-51); MEAN CORPUSCULAR HEMOGLOBIN 30.5 PG (27.0-31.0); MEAN CORPUSCULAR HGB CONC 33.2 g/dL (33.0-36.5); MEAN CORPUSCULAR VOLUME 91.9 FL (78-98); MEAN PLATELET VOLUME 9.5 FL (7.4-10.4); MONOCYTES # (AUTO) 0.1 X10'3 (0-0.9); MONOCYTES % (AUTO) 2.1 % (2-12); NEUTROPHILS # (AUTO) 5.9 X10'3 (1.8-7.7); NEUTROPHILS % (AUTO) 91.1 % (42-75); PLATELET COUNT 154 X10'3 (140-440); RED BLOOD COUNT 4.42 X10'6 (4.70-6.10); RED CELL DISTRIBUTION WIDTH 15.8 % (11.5-14.5); WHITE BLOOD COUNT 6.5 X10'3 (4.5-11.0)
[2022-04-20 08:32] LABS: ALANINE AMINOTRANSFERASE 336 U/L (12-78); ALBUMIN 3.3 G/DL (3.4-5.0); ALBUMIN/GLOBULIN RATIO 0.9 (1.1-1.5); ALKALINE PHOSPHATASE 89 IU/L (46-116); ANION GAP 14 (8-16); ASPARTATE AMINO TRANSFERASE 251 U/L (10-37); BILIRUBIN,TOTAL 0.3 MG/DL (0.1-1.0); BLOOD UREA NITROGEN 43 MG/DL (7-18); BUN/CREATININE RATIO 18.5 (5.4-32.0); CHLORIDE 101 MMOL/L (99-107); CREATININE 2.33 MG/DL (0.60-1.10); GLUCOSE 193 MG/DL (70-104); POTASSIUM 3.9 MMOL/L (3.5-5.1); SODIUM 138 MMOL/L (135-145); TOTAL CARBON DIOXIDE 22.8 MMOL/L (24-32); TOTAL PROTEIN 7.1 G/DL (6.4-8.2); eGFR 27 ML/MIN
[2022-04-20 08:36] LABS: MAGNESIUM 2.3 MG/DL (1.5-2.4)
[2022-04-20 08:42] LABS: CALCIUM 8.5 MG/DL (8.5-10.1)
[2022-04-20 08:52] LABS: D-DIMER 2.22 MG/L FEU (0-0.50)
[2022-04-20] MEDS: azithromycin/NS 500mg/250ml 250 ML IV SCH (09:23)
[2022-04-20] MEDS: CefTRIAXone/D5W-Rocephin 1gm 50 ML IV SCH (09:23)
[2022-04-20] MEDS: enoxaparin 40mg/0.4ml syringe SQ SCH ×2 (09:24→20:00)
[2022-04-20] MEDS: dexamethasone sod phosphate 4mg/ml inj. IV SCH ×2 (09:29→20:43)
[2022-04-20] MEDS: insulin Lispro (HumaLOG) vial - multi-dose SQ SCH (09:42)
[2022-04-20 11:00] VITALS: BP 151/76
--- NOTE | 2022-04-20 11:25 | NUR ---
DM consult: Pt with T2DM, well controlled with A1c 7.2%. Per EMR pt dx with DM in 1994. Pt currently in airborne precautions d/t positive COVID testing. Written DM education with RD contact information placed in patient's chart. Will remain available. Addendum: 04/20/22 at [address]ñoz RD Amended: Links added.
[2022-04-20 15:00] VITALS: BP 103/38
[2022-04-20 15:52] LABS: ALANINE AMINOTRANSFERASE 307 U/L (12-78); ALBUMIN/GLOBULIN RATIO 0.9 (1.1-1.5); ALKALINE PHOSPHATASE 80 IU/L (46-116); ANION GAP 14 (8-16); ASPARTATE AMINO TRANSFERASE 210 U/L (10-37); BILIRUBIN,TOTAL 0.2 MG/DL (0.1-1.0); BLOOD UREA NITROGEN 49 MG/DL (7-18); BUN/CREATININE RATIO 21.4 (5.4-32.0); CALCIUM 8.2 MG/DL (8.5-10.1); CHLORIDE 103 MMOL/L (99-107); CREATININE 2.29 MG/DL (0.60-1.10); GLUCOSE 271 MG/DL (70-104); SODIUM 139 MMOL/L (135-145); TOTAL CARBON DIOXIDE 22.5 MMOL/L (24-32); TOTAL PROTEIN 6.5 G/DL (6.4-8.2); eGFR 28 ML/MIN
--- NOTE | 2022-04-20 17:07 | NUR ---
Paged Dr. Christy regarding pts BP starting to trend down after the dobutamine is discontinued. PAGER ID: [phone] MESSAGE: [phone], Letha Lo. Pt has been off the dobutamine since you discontinued it. Their BP is starting to trend down, it's 103/38 HR 61. [facility] 0072.
[2022-04-20 18:00] VITALS: BP 109/51
--- NOTE | 2022-04-20 18:17 | NUR ---
Problems reprioritized. Patient report given, questions answered & plan of care reviewed with Ju THOMSON, patient stable at transfer of care.
--- NOTE | 2022-04-20 20:00 | NUR ---
Patient refused Lovenox 40 mg and Colace 100 mg. Patient was educated on each medications importance. Patient stated that he did not want to take the Colace due to his bowels being loose. Patient stated that he does not need to take the Lovenox per his . No acute distress noted. Will continue to monitor patient.
[2022-04-20] MEDS: insulin glargine (Lantus) pen - multi-dose SQ SCH (21:40)
[2022-04-20 22:00] VITALS: BP 105/49
--- NOTE | 2022-04-20 22:35 | NUR ---
Patient received to the unit 3028B from ED12. Patient vitals BP 97/53, HR 85, O2 95%, R 18, T 100.0. Patient c/o generalized pain and nausea. Patient was given Morphine 2gm IV for pain and Zofran 4mg for N/V. Patient A&Ox4. No acute distress noted. Will continue to monitor patient. Addendum: 04/21/22 at 0517 by Ju Mcgarry RN Wrong patient.
[2022-04-21 02:00] VITALS: BP 113/49
[2022-04-21 06:00] VITALS: BP 164/64
--- NOTE | 2022-04-21 06:10 | NUR ---
Patient in room PCU 3008. I have received report from ALIX Dodd and had the opportunity to ask questions and assume patient care.
[2022-04-21 06:38] LABS: BASOPHILS % (AUTO) 0.2 % (0-1); EOSINOPHILS % (AUTO) 0 % (0-6); HEMOGLOBIN 12.3 g/dl (14.0-17.9); LYMPHOCYTES # (AUTO) 0.5 X10'3 (1.1-4.8); LYMPHOCYTES % (AUTO) 4.8 % (21-51); MEAN CORPUSCULAR HEMOGLOBIN 30.3 PG (27.0-31.0); MEAN CORPUSCULAR HGB CONC 33.2 g/dL (33.0-36.5); MEAN CORPUSCULAR VOLUME 91.2 FL (78-98); MEAN PLATELET VOLUME 8.4 FL (7.4-10.4); MONOCYTES # (AUTO) 0.3 X10'3 (0-0.9); MONOCYTES % (AUTO) 3.2 % (2-12); NEUTROPHILS # (AUTO) 8.8 X10'3 (1.8-7.7); NEUTROPHILS % (AUTO) 91.8 % (42-75); PLATELET COUNT 158 X10'3 (140-440); RED BLOOD COUNT 4.06 X10'6 (4.70-6.10); RED CELL DISTRIBUTION WIDTH 15.5 % (11.5-14.5); WHITE BLOOD COUNT 9.6 X10'3 (4.5-11.0)
[2022-04-21 06:46] LABS: D-DIMER 1.88 MG/L FEU (0-0.50)
[2022-04-21 06:51] LABS: ALANINE AMINOTRANSFERASE 285 U/L (12-78); ALBUMIN 2.8 G/DL (3.4-5.0); ALBUMIN/GLOBULIN RATIO 0.8 (1.1-1.5); ALKALINE PHOSPHATASE 74 IU/L (46-116); ANION GAP 10 (8-16); ASPARTATE AMINO TRANSFERASE 169 U/L (10-37); BILIRUBIN,TOTAL 0.2 MG/DL (0.1-1.0); BLOOD UREA NITROGEN 50 MG/DL (7-18); BUN/CREATININE RATIO 25.9 (5.4-32.0); C-REACTIVE PROTEIN 1.41 MG/DL (0.0-0.5); CALCIUM 8.2 MG/DL (8.5-10.1); CHLORIDE 105 MMOL/L (99-107); CREATININE 1.93 MG/DL (0.60-1.10); GLUCOSE 231 MG/DL (70-104); MAGNESIUM 2.4 MG/DL (1.5-2.4); POTASSIUM 4.4 MMOL/L (3.5-5.1); SODIUM 139 MMOL/L (135-145); TOTAL CARBON DIOXIDE 24.3 MMOL/L (24-32); TOTAL PROTEIN 6.2 G/DL (6.4-8.2); eGFR 34 ML/MIN
[2022-04-21] MEDS: enoxaparin 40mg/0.4ml syringe SQ SCH (07:54)
[2022-04-21] MEDS: K and/or MAG REPLACEMENT MC SCH (07:54)
[2022-04-21] MEDS: docusate sod 100mg capsule PO SCH (08:00)
[2022-04-21] MEDS: CefTRIAXone/D5W-Rocephin 1gm 50 ML IV SCH (08:57)
[2022-04-21] MEDS: azithromycin/NS 500mg/250ml 250 ML IV SCH (08:57)
[2022-04-21] MEDS: dexamethasone sod phosphate 4mg/ml inj. IV SCH (08:57)
[2022-04-21] MEDS: insulin Lispro (HumaLOG) vial - multi-dose SQ SCH (09:03)
[2022-04-21] MEDS ORDERED: amiodarone 200mg tablet PO SCH (09:55)
[2022-04-21] MEDS ORDERED: carvedilol 6.25mg tablet PO SCH (09:55)
[2022-04-21 10:00] VITALS: BP 158/62
[2022-04-21] MEDS ORDERED: DEXA4TAB67 PO (10:38)
--- NOTE | 2022-04-21 13:30 | NUR ---
Pt refuses insulin for 191 BG stating he will take his jardiance when he gets home.
[2022-04-21] MEDS ORDERED: ondansetron 4mg rapidly disintigrating tab PO PRN (13:45)
--- NOTE | 2022-04-21 14:00 | NUR ---
DC inst provided to pt. IV x2 DC'd, tip intact. All belongings sent w/pt. WC to vehicle.
== END 2022-04-21 13:55 | disposition home or self-care (01) | DRG 177 ==
LOC: ER 14:41 → ED HOLD 17:46 → EDBEDREQ 19:58 → PCU 3S 21:00
PROVIDERS: ADMIT Family Medicine; ATTEND Internal Medicine
PROC: CB121ZZ Planar Nuclear Medicine Imaging of Lungs and Bronchi using Technetium 99m (Tc-99m) (ICD-10-PCS; principal; 2022-04-20)
DX: U07.1 COVID-19 (principal); J12.82 Pneumonia due to coronavirus disease 2019; J96.01 Acute respiratory failure with hypoxia; I13.0 Hypertensive heart and chronic kidney disease with heart failure and stage 1 through stage 4 chronic kidney disease, or unspecified chronic kidney disease; I48.20 Chronic atrial fibrillation, unspecified; I50.22 Chronic systolic (congestive) heart failure; N17.9 Acute kidney failure, unspecified; E03.9 Hypothyroidism, unspecified; E11.22 Type 2 diabetes mellitus with diabetic chronic kidney disease; G47.33 Obstructive sleep apnea (adult) (pediatric); R74.01 Elevation of levels of liver transaminase levels; E78.00 Pure hypercholesterolemia, unspecified; M19.90 Unspecified osteoarthritis, unspecified site; I25.10 Atherosclerotic heart disease of native coronary artery without angina pectoris; J44.9 Chronic obstructive pulmonary disease, unspecified; N18.30 Chronic kidney disease, stage 3 unspecified; Z82.49 Family history of ischemic heart disease and other diseases of the circulatory system; Z87.891 Personal history of nicotine dependence; Z95.1 Presence of aortocoronary bypass graft; Z79.899 Other long term (current) drug therapy; Z79.82 Long term (current) use of aspirin
CPT/HCPCS: 36415; 71045; 78580; 80053; 81001; 82550; 82948; 83036; 83605; 83690; 83735; 83880; 84145; 84443; 84484; 85025; 85379; 86140; 87040; 87081; 93005; 93306; 94760; 99285; A4615; A9540; G0378; J0456; J0696; J1100; J1250; J1650; J1815; J3490; J7030; J7040